=== PATIENT | male | born 1945 | race Caucasian/White ===

== ENCOUNTER 2023-11-01 06:48 | Day surgery (SDC) | payer MEDICARE, OTHER, SELFPAY ==
[2023-11-01 07:14] VITALS: BMI 28.2
[2023-11-01 07:17] VITALS: BMI 28.2
[2023-11-01 07:18] VITALS: BP 148/67
[2023-11-01 09:55] VITALS: BP 104/56
[2023-11-01 10:15] VITALS: BP 107/65
[2023-11-01 10:30] VITALS: BP 115/64
== END 2023-11-01 10:50 | disposition home or self-care (01) ==
LOC: GI 06:48
PROVIDERS: ATTENDING PHYSICIAN Internal Medicine Gastroenterology
DX: K86.2 Cyst of pancreas (principal); K86.9 Disease of pancreas, unspecified; R93.3 Abnormal findings on diagnostic imaging of other parts of digestive tract
CPT/HCPCS: 43238; 88172; 88173; 88305